=== PATIENT | male | born 1960 | race Caucasian/White ===

== ENCOUNTER 2016-07-21 03:16 | Emergency (ER) | payer OTHER ==
[~2016-07-21] VITALS: Ht 185.4 cm; Wt 93.0 kg
[~2016-07-21 03:16] MED LIST: ASPI-807; BENA40TA2 PO; GABA-532; HYDR1TAB PO; METO25TA20; SIMV5TAB6
[2016-07-21 03:20] VITALS: BP 119/79
--- NOTE | 2016-07-21 04:15 | NUR ---
Hermann hood in [facility] - 07/21/16 at 0446 by PEGGY REPORT GIVEN TO NKECHI BY KEHINDE DEL ROSARIO FOR CONTINUATION OF CARE.
--- NOTE | 2016-07-21 04:19 | NUR ---
PT FROM HOME W/ CO SHARP L SIDED SHARP MID BACK PAIN OF 5/10 THAT WORSEN AT 0200. PT STATES THAT HE NOTICED BACK PAIN SINCE LAST WEEKEND BUT WAS TOLRABLE UNTIL THIS AM. AWAITING ER MD FOR RAUL.
[2016-07-21] MEDS ORDERED: MAG HYDROX/AL HYDROX/SIMETH 30 ML UDC PO ONE (04:30)
[2016-07-21] MEDS ORDERED: KETOROLAC TROMETHAMINE INJ 60 MG/2 ML VIAL IM ONE (04:30)
[2016-07-21] MEDS ORDERED: LIDOCAINE VISCOUS 2% UD 15 ML UDC MM ONE (04:30)
[2016-07-21] MEDS ORDERED: LIDOCAINE VISCOUS 2% UD 15 ML UDC ONE (04:37)
[2016-07-21] MEDS ORDERED: MAG HYDROX/AL HYDROX/SIMETH 30 ML UDC ONE (04:37)
[2016-07-21] MEDS ORDERED: KETOROLAC TROMETHAMINE INJ 30 MG/ML VIAL ONE (04:37)
--- NOTE | 2016-07-21 04:44 | NUR ---
RADIOLOGY AT BEDSIDE TO TAKE PT FOR XR OF L RIB
--- NOTE | 2016-07-21 05:29 | NUR ---
Patient discharged to home in stable condition. Written and verbal after care instructions given. Patient verbalizes understanding of instruction.
== END 2016-07-21 05:30 | disposition home or self-care (01) ==
LOC: ER 03:20
DX: M54.6 Pain in thoracic spine (principal); E78.5 Hyperlipidemia, unspecified; I10 Essential (primary) hypertension; I25.2 Old myocardial infarction; K21.9 Gastro-esophageal reflux disease without esophagitis; Z79.82 Long term (current) use of aspirin; Z96.642 Presence of left artificial hip joint; Z91.040 Latex allergy status
CPT/HCPCS: 71100; 96372; 99284; A4606; J1885; Z7610